=== PATIENT | female | born 1995 | race African-American/Black ===

== ENCOUNTER 2020-10-24 21:00 | Emergency (ER) | payer SELFPAY ==
[~2020-10-24] VITALS: Ht 162.6 cm; Wt 113.4 kg
[2020-10-24 23:56] VITALS: BP 123/82
== END 2020-10-25 00:58 | disposition home or self-care (01) ==
LOC: ER 21:00
DX: R51.9 Headache, unspecified (principal); R11.2 Nausea with vomiting, unspecified; R53.83 Other fatigue; R05 Cough; R06.02 Shortness of breath; E66.01 Morbid (severe) obesity due to excess calories; Z20.828 Contact with and (suspected) exposure to other viral communicable diseases
CPT/HCPCS: 36415; 87426; 99283; C9803; U0003